=== PATIENT | female | born 1960 | race Caucasian/White ===

== ENCOUNTER 2021-02-27 11:42 | Outpatient (REF) | payer OTHER, SELFPAY ==
--- NOTE | ~2021-02-27 | MM_ITS ---
EXAMINATION: MM SCREENING DIGITAL BREAST TOMOSYNTHESIS, BILATERAL CLINICAL INFORMATION: Screening. Asymptomatic. The lifetime risk of breast cancer based on the Tyrer-Cuzick Model is 5%. COMPARISON: Mammography: 11/11/2018, 04/05/2015 TECHNIQUE: Digital breast tomosynthesis is performed in both the craniocaudal and mediolateral oblique views along with computer-aided detection (CAD). Synthesized 2D images are generated from the tomosynthesis. FINDINGS: There are scattered areas of fibroglandular density (ACR BI-RADS breast composition Category b). There are no significant masses, abnormal calcifications, or other abnormalities. Parenchymal pattern is similar to prior studies. No developing density. There are scattered benign round calcifications. The axilla and skin contours are unremarkable. MM/MM tomosynthesis screening BI IMPRESSION: No mammographic evidence of malignancy. ASSESSMENT: BI-RADS 1: Negative RECOMMENDATION: Routine annual mammography screening. This patient's information was entered into a reminder system with a target due date for their next mammogram.
== END 2021-02-27 11:43 | disposition home or self-care (01) ==
LOC: HO.MAMMO 11:42
PROVIDERS: Visit Provider Internal Medicine
DX: Z12.31 Encounter for screening mammogram for malignant neoplasm of breast (principal)
CPT/HCPCS: 77063; 77067

== ENCOUNTER 2021-07-08 11:13 | Outpatient (REF) | payer OTHER, SELFPAY ==
--- NOTE | ~2021-07-08 | XR_ITS ---
EXAMINATION: X-RAY RIGHT HAND X-RAY RIGHT THUMB CLINICAL INFORMATION: Pain between first and second metacarpals. Thumb pain. COMPARISON: None TECHNIQUE: Right hand 3 views. Right thumb 2 views. FINDINGS: Right thumb: Normal alignment. No fracture or dislocation. Joint spaces are maintained. Right hand: Normal alignment. No evidence of acute fracture or dislocation. Joint spaces are maintained. No abnormal soft tissue calcification. XR/XR hand RT min 3V IMPRESSION: No evidence of acute osseous abnormality.
--- NOTE | ~2021-07-08 | XR_ITS ---
EXAMINATION: X-RAY RIGHT HAND X-RAY RIGHT THUMB CLINICAL INFORMATION: Pain between first and second metacarpals. Thumb pain. COMPARISON: None TECHNIQUE: Right hand 3 views. Right thumb 2 views. FINDINGS: Right thumb: Normal alignment. No fracture or dislocation. Joint spaces are maintained. Right hand: Normal alignment. No evidence of acute fracture or dislocation. Joint spaces are maintained. No abnormal soft tissue calcification. XR/XR finger RT min 2V IMPRESSION: No evidence of acute osseous abnormality.
== END 2021-07-08 11:14 | disposition home or self-care (01) ==
LOC: HO.XRAY 11:13
PROVIDERS: Absent Provider Internal Medicine; PCP Internal Medicine; Visit Provider Family Medicine
DX: M79.644 Pain in right finger(s) (principal)
CPT/HCPCS: 73130; 73140

== ENCOUNTER → 2021-07-24 10:14 | Outpatient (BNVA) | payer OTHER, SELFPAY | PROVIDERS: PCP Internal Medicine; Visit Provider Physician Assistant | DX: M65.311 Trigger thumb, right thumb (principal) | CPT/HCPCS: 99202 ==

== ENCOUNTER 2021-08-29 10:21 | Day surgery (SDC) | payer OTHER, SELFPAY ==
--- NOTE | 2021-08-29 09:36 | W.PM.OPN ---
Operative Note Operative Note Date of Service: 08/29/21 Narrative: Operative Note Preop diagnosis: 1. Right trigger thumb Postop diagnosis: 1. Right trigger thumb Procedure: 1. Right thumb A1 eric release Surgeon: Arcelia Bailey MD Anesthesia: local block using 1% lidocaine with epinephrine Findings: No locking or catching after A1 eric release EBL: Less than 5 mL Tourniquet time: None Specimens: None Complications: None Disposition: Brought to recovery room in stable condition Plan: Follow-up for 10-14 days for wound check and suture removal Indications: The patient is 60 years old, with a right trigger thumb that has been unresponsive to nonoperative management. The risks and benefits of operative treatment including but not limited to risk of damage to blood vessels, nerves, tendons, infection, persistent pain, persistent symptoms, recurrence or possible need for additional surgery were discussed with the patient and the patient wishes to proceed with surgery. Procedure: Once consent was obtained a local block was performed in the preop area using a combination of 1% lidocaine with epinephrine. The patient was then brought back to the operating suite and placed on the operative table in supine position. A tourniquet was applied to the proximal aspect of the right upper extremity and the limb was prepped and draped in a standard surgical fashion. Once assured that we had a good block, a 1.5 cm oblique incision was made centered over the A1 eric of the right thumb . The incision was made through the skin to the subcutaneous tissues using a #15 blade. Careful dissection was made down to the level of the A1 eric using tenotomy scissors, with care being taken to protect the nearby neurovascular structures. A longitudinal incision was made in the A1 eric 1st using a #15 blade, then using tenotomy scissors under direct visualization. The A1 eric was noted to be thickened. Following our A1 eric release, we no longer saw any locking or catching of the digit with flexion and extension. Once satisfied with our A1 eric release the wound was copiously irrigated with normal saline and hemostasis was obtained with a brief period of local pressure. The skin edges were reapproximated with some 5.0 nylon suture material and a sterile dressing was applied. The patient appears to have tolerated the procedure well and with no complications. All digits were well vascularized at the conclusion of the case.
[2021-08-29 10:49] VITALS: BP 138/66; PULSE 85; RESP 16; TEMP 36.2; O2SAT 99; BMI 20.8
--- NOTE | 2021-08-29 11:55 | MHC.SHP ---
Pre-Procedural Eval Section A Date of Service: 08/29/21 The patient is an INPATIENT: No Changes since office visit: No Cold of Flu in the past 2 weeks, No New Medical Problems, No Changes in Medication and No Patient answered all questions The History & Physical has been completed within 30 days and I have reviewed it.: Yes Section B Chief Complaint: Trigger thumb, right thumb Allergies: Allergies Allergy/AdvReac Type Severity Reaction Status Date / Time No Known Allergies Allergy Unverified 07/24/21 10:18 Plan I have reviewed the history and physical and performed a pertinent physical examination on my patient. No changes have occurred unless specified.
[2021-08-29 11:58] VITALS: BP 126/61; PULSE 83; RESP 16; TEMP 36.1; O2SAT 100
== END 2021-08-29 11:58 | disposition home or self-care (01) ==
PROVIDERS: PCP Internal Medicine; Visit Provider Orthopaedic Surgery
PROC: (CPT 26055; principal; 2021-08-29 12:00)
DX: M65.311 Trigger thumb, right thumb (principal); M25.641 Stiffness of right hand, not elsewhere classified; R26.89 Other abnormalities of gait and mobility; E11.9 Type 2 diabetes mellitus without complications; Z79.84 Long term (current) use of oral hypoglycemic drugs
CPT/HCPCS: 26055; J0171

== ENCOUNTER → 2021-09-10 12:37 | Outpatient (BNVA) | payer OTHER, SELFPAY | PROVIDERS: PCP Internal Medicine; Visit Provider Orthopaedic Surgery | DX: M65.311 Trigger thumb, right thumb (principal) | CPT/HCPCS: 99212 ==

== ENCOUNTER 2021-09-26 09:54 | Outpatient (REF) | payer OTHER, SELFPAY ==
[2021-09-26 11:12] LABS: MANUAL DIFF FLAG NO
[2021-09-26 11:38] LABS: Basophils Absolute Auto 0.1 X10*3/uL (0.0-0.2); Basophils Percent Auto 1.4 % (0-2); Eosinophils Absolute Auto 0.2 X10*3/uL (0.0-0.4); Eosinophils Percent Auto 4.1 % (0-4); Hematocrit 39.3 % (37.0-47.0); Hemoglobin 13.4 g/dl (12.0-16.0); Imm Gran Abs Auto 0.01 X10*3/uL (0.00-0.03); Imm Gran Pct Auto 0.2 % (0.0-0.4); Lymphocytes Absolute Auto 1.5 X10*3/uL (1.2-4.9); Lymphocytes Percent Auto 31.1 % (20-40); Mean Corpuscular HGB Conc 34.1 g/dl (31.0-35.0); Mean Corpuscular Hemoglobin 29.6 pg (27.0-33.0); Mean Corpuscular Volume 86.8 fL (80.0-98.0); Mean Platelet Volume 10.7 fL (9.4-12.3); Monocytes Absolute Auto 0.6 X10*3/uL (0.1-1.2); Monocytes Percent Auto 11.5 % (2-11); Neutrophils Absolute Auto 2.5 x10*3/uL (2.0-8.3); Neutrophils Percent Auto 51.7 % (45-73); Platelet Count 184 X10*3/uL (160-400); Red Blood Count 4.53 X10*6/uL (4.20-5.50); Red Cell Distribution Width 13.3 % (11.0-16.0); White Blood Count 4.9 X10*3/uL (4.8-10.8)
[2021-09-26 12:32] LABS: Alanine Aminotransferase 25 U/L (0-31); Albumin Level 4.2 g/dL (3.5-5.0); Alkaline Phosphatase 55 U/L (39-117); Anion Gap 12 (12-20); Aspartate Amino Transferase 21 U/L (5-31); Bilirubin Total 0.3 mg/dL (0.0-1.0); Blood Urea Nitrogen 16 mg/dL (9-16); Calcium 9.7 mg/dL (8.4-10.2); Carbon Dioxide 28 mmol/L (22-29); Chloride 102 mmol/L (96-108); Estimated Glomerular Filt Rate > 60; Glucose Random 102 mg/dL (60-115); Potassium 4.8 mmol/L (3.3-5.1); Sodium 137 mmol/L (135-145)
[2021-09-26 12:38] LABS: Thyroid Stimulating Hormone 0.25 uIU/mL (0.32-4.0)
== END 2021-09-26 09:55 | disposition home or self-care (01) ==
LOC: HO.LAB 09:54
PROVIDERS: PCP Internal Medicine; Referring Provider Internal Medicine; Visit Provider Physician Assistant
DX: K52.9 Noninfective gastroenteritis and colitis, unspecified (principal)
CPT/HCPCS: 36415; 80053; 84443; 85025; 99202

== ENCOUNTER 2022-08-19 10:31 | Outpatient (REF) | payer OTHER, SELFPAY ==
--- NOTE | ~2022-08-19 | MM_ITS ---
EXAMINATION: MM SCREENING DIGITAL BREAST TOMOSYNTHESIS, BILATERAL CLINICAL INFORMATION: Screening. Asymptomatic. The lifetime risk of breast cancer based on the Tyrer-Cuzick Model is 6%. COMPARISON: Mammography: 02/27/2021, 11/11/2018, 04/05/2015, 03/14/2014. TECHNIQUE: Digital breast tomosynthesis is performed in both the craniocaudal and mediolateral oblique views along with computer-aided detection (CAD). Synthesized 2D images are generated from the tomosynthesis. FINDINGS: There are scattered areas of fibroglandular density (ACR BI-RADS breast composition Category b). Fibronodular parenchymal pattern is similar to prior exams. There is no significant mass or architectural abnormality or developing density. No abnormal calcifications. The axilla and skin contours are unremarkable. MM/MM tomosynthesis screening BI IMPRESSION: No mammographic evidence of malignancy. ASSESSMENT: BI-RADS 1: Negative RECOMMENDATION: Routine annual mammography screening. This patient's information was entered into a reminder system with a target due date for their next mammogram.
== END 2022-08-19 10:32 | disposition home or self-care (01) ==
LOC: HO.MAMMO 10:31
PROVIDERS: PCP Internal Medicine; Visit Provider Internal Medicine
DX: Z12.31 Encounter for screening mammogram for malignant neoplasm of breast (principal)
CPT/HCPCS: 77063; 77067

== ENCOUNTER 2023-08-25 10:37 | Outpatient (REF) | payer OTHER, SELFPAY | END 2023-08-25 10:38 | disposition home or self-care (01) | LOC: HO.MAMMO 10:37 | PROVIDERS: PCP Internal Medicine; Visit Provider Internal Medicine | DX: Z12.31 Encounter for screening mammogram for malignant neoplasm of breast (principal) | CPT/HCPCS: 77063; 77067 ==

== ENCOUNTER → 2023-08-25 11:00 | Outpatient (BNV) | payer OTHER, SELFPAY | PROVIDERS: PCP Internal Medicine; Visit Provider Radiology Diagnostic Radiology | DX: Z12.31 Encounter for screening mammogram for malignant neoplasm of breast (principal) | CPT/HCPCS: 77063; 77067 ==

== ENCOUNTER 2023-09-09 11:31 | Outpatient (REF) | payer OTHER, SELFPAY ==
[2023-09-09 14:38] LABS: Anion Gap 12 (12-20); Blood Urea Nitrogen 13 mg/dL (9-16); Calcium 9.4 mg/dL (8.4-10.2); Carbon Dioxide 30 mmol/L (22-29); Chloride 100 mmol/L (96-108); Cholesterol 125 mg/dL (<200); Estimated Glomerular Filt Rate > 60; Glucose Random 99 mg/dL (60-115); HDL Cholesterol 44 mg/dL (>40); LDL Cholesterol Calculated 69 mg/dL (<100); Potassium 4.4 mmol/L (3.3-5.1); Sodium 138 mmol/L (135-145); Triglycerides 62 mg/dL (<150)
[2023-09-09 14:39] LABS: TSH reflex Free T4 1.71 uIU/mL (0.32-4.0)
[2023-09-10 05:04] LABS: HIV AB/AG Nonreactive (Nonreactive); HIV Num 1 0.05 S/CO (0.00-0.99); ~HepC Num1 0.07 S/CO (0.00-0.79); ~Hepatitis C Antibody Nonreactive (Nonreactive)
[2023-09-11 22:28] LABS: TS Negative Control Passed; TS Panel A 0; TS Panel B 0; TS Positive Control Passed; TSpotTB Negative (Negative)
== END 2023-09-09 11:32 | disposition home or self-care (01) ==
LOC: HO.HHCL 11:31
PROVIDERS: Visit Provider Internal Medicine
DX: Z00.00 Encounter for general adult medical examination without abnormal findings (principal); Z11.4 Encounter for screening for human immunodeficiency virus [HIV]; Z11.1 Encounter for screening for respiratory tuberculosis; E03.9 Hypothyroidism, unspecified
CPT/HCPCS: 36415; 80048; 80061; 84443; 86481; 86803; 87389

== ENCOUNTER 2024-08-30 10:58 | Outpatient (REF) | payer OTHER, SELFPAY ==
--- OUTSIDE RECORDS SUMMARY | 2024-08-30 13:12 | XMS_ITS | Encounter Summary ---
Author Organization [facility] Address [address] [place] [address] 7 [place] [address] Care Team Providers Care Mud Cleaner Operator Name Role Phone Gill Carl MD Primary Care Provide r Encounter Details Date Type Department Care Team (Late st Contact Info) Description 08/22/2022 Abstract [facility] [address] [place], [place] [phone] Jessica Kuhn RN [address] [place] [address] Social History Tobacco Use Types Packs/Day Years Used Date Smoking Tobacco: Never Assessed Comments Unknown Sex and Gender Information Value Date Recorded Sex Assigned at Female 03/31/2022 10:15 AM EDT Legal Sex Female 10:15 AM EDT Gender Identity Female 03/31/2022 10:15 AM EDT Sexual Orientation Straight 03/31/2022 10 :15 AM EDT documented as of this encounter Plan of Treatment Not on file documented as of this encounter Procedures Procedure Name Priority Date/Time Associated Diagnosis Comments MAMMOGRAPHY Routine 08/19/2022 documented in this encounter Results * Mammography (08/19/2022) Mammogram BIRADS 2: Negative Anatomical Region Laterality Modality Other us Historical Provider HEALTH MAINTENANCE Final Result documented in this encounter Visit Diagnoses Not on filedocumented in this encounter Care Teams Mud Cleaner Operator Relationship Specialty Start Date End Date Gill Carl MD [address] [place] [address] PCP - General Family Medicine 02/10/18 documented as of this encounter
--- OUTSIDE RECORDS SUMMARY | 2024-08-30 13:12 | XMS_ITS | Encounter Summary ---
Author Organization [employer] Address [address] [place] [address] Care Team Providers Care Out And Out Cigar Maker Hand Name Role Phone Gill Carl MD Primary Care Provide r Encounter Details Date Type Department Care Team ([facility] st Contact Info) Description 07/28/2022 Orders Only [facility] [address] [place] [address] Mary Manning LPN Social History Tobacco Use Types Packs/Day Years [...] Procedure Name Priority Date/Time Associated Diagnosis Comments BI MAMMOGRAM SCREENING TOMOSYNTHESIS BILATERAL Routine 08/19/2022 11:00 AM EDT documented in this encounter Results * BI Mammogram Screening Tomosynthesis Bilateral (08/19/2022 11:00 AM EDT) Anatomical Region Laterality Modality Breast Bilateral Mammography 08/19/2022 11:0 0 AM EDT Narrative 08/21/2022 9:10 AM EDT ? [facility] ? [address] ?[place] [address] ? Mammography Report ? Signed ? Patient: Hicks,Lanny ?MR#: [id number] ?? 88 ? : 1960 ?Acct:[id number] ? Age/Sex: 61 / F ?ADM Date: 08/19/22 ? Loc: HO.MAMMO ? Attending Dr: Gill Molina MD ? Ordering Physician: Gill Carl MD ?Results: ?? 1Negative ? Date of Service: 08/19/22 ?Follow Up: 1 Year From Orig ?? inal Mammogram ? Procedure(s): MM tomosynthesis screening BI ?? Accession Number(s): [id number] ? cc: Gill Carl MD ? EXAMINATION: ?? MM SCREENING DIGITAL BREAST TOMOSYNTHESIS, BILATERAL ? CLINICAL INFORMATION: ? Screening. Asymptomatic. ? The lifetime risk of breast cancer based on the Tyrer-Cuzick Model is ?? 6%. ? COMPARISON: ?? Mammography: 02/27/2021, 11/11/2018, 04/05/2015, 03/14/2014. ? TECHNIQUE: ?? Digital breast tomosynthesis is performed in both the craniocaudal and ?? mediolateral oblique views along with computer-aided detection (CAD). ?? Synthesized 2D images are generated from the tomosynthesis. ? FINDINGS: ?? There are scattered areas of fibroglandular density (ACR BI-RADS breast ?? composition Category b). ? Fibronodular parenchymal pattern is similar to prior exams. There is no ?? significant mass or architectural abnormality or developing density. No ?? abnormal calcifications. The axilla and skin contours are unremarkable. ? MM/MM tomosynthesis screening BI ?? IMPRESSION: ?? No mammographic evidence of malignancy. ? ASSESSMENT: ? BI-RADS 1: Negative ? RECOMMENDATION: ?? Routine annual mammography screening. ? This patient's information was entered into a reminder system with a ?? target due date for their next mammogram. ? Dictated By: ?Gato Cooney MD ? Signed By: ?<Electronically signed by Gato Cooney MD in OV> ?08/21/22906 ? DD/ 1100 ? TD/TT: ? Active Directory Specialist: SAMPSON ? Procedure Note Donhoneyraifamarquester, Image - 08/21/2022 [facility] [address] [place] [address] Mammography Report Signed Patient: Sandy Hicks#: [id number] [birth year] : 1960Acct:[id number] Age/Sex: 61 / FADM Date: 08/19/22 Loc: HO.MAMMO Attending Dr: Gill Molina MD Ordering Physician: Gill Carl MDResults: 1Negative Date of Service: 08/19/22Follow Up: 1 Year From Orig inal Mammogram Procedure(s): MM tomosynthesis screening BI Accession Number(s): [id number] cc: Gill Carl MD EXAMINATION: MM SCREENING DIGITAL BREAST TOMOSYNTHESIS, BILATERAL CLINICAL INFORMATION: Screening. Asymptomatic. The lifetime risk of breast cancer based on the Tyrer-Cuzick Model is 6%. COMPARISON: Mammography: 02/27/2021, 11/11/2018, 04/05/2015, 03/14/2014. TECHNIQUE: Digital breast tomosynthesis is performed in both the craniocaudal and mediolateral oblique views along with computer-aided detection (CAD). Synthesized 2D images are generated from the tomosynthesis. FINDINGS: There are scattered areas of fibroglandular density (ACR BI-RADS breast composition Category b). Fibronodular parenchymal pattern is similar to prior exams. There is no significant mass or architectural abnormality or developing density. No abnormal calcifications. The axilla and skin contours are unremarkable. MM/MM tomosynthesis screening BI IMPRESSION: No mammographic evidence of malignancy. ASSESSMENT: BI-RADS 1: Negative RECOMMENDATION: Routine annual mammography screening. This patient's information was entered into a reminder system with a target due date for their next mammogram. Dictated By: Gato Cooney MD Signed By: <Electronically signed by Gato Cooney MD in OV> 08/21/22 0907 DD/ 1100 TD/TT: Active Directory Specialist: ADRIÁN [facility] External Provider IMG BI PROCEDURES Final Result documented in this encounter Visit Diagnoses Not on filedocumented in this encounter Care Teams Out And Out Cigar Maker Hand Relationship Specialty Start Date End Date Gill Carl MD [address] [place] [id number] PCP - General Family Medicine 02/10/18 documented as of this encounter
--- OUTSIDE RECORDS SUMMARY | 2024-08-30 13:12 | XMS_ITS | Clinical Summary ---
Author Organization [employer] Address [address] [place] [address] 7 [place] [address] Care Team Providers Care [employer] Hand Name Role Phone Gill Carl MD Primary Care Provide r Allergies No known active allergies Medications FreeStyle lancets INJECT 1 BY SUBCUTANEOUS ROUTE EVERY DAY 05/10/20 22 Active FreeStyle lancets INJECT 1 BY SUBCUTANEOUS ROUTE EVERY DAY 100 each 11 04/06/20 24 Active metFORMIN (Glucophage) 1000 MG tabletIndicatio ns:Type 2 diabetes mellitus with other specified complication, without long-term current use of insulin (CMS/HCC) TAKE 1 TABLET BY MOUTH TWICE A DAY WITH BREAKFAST AND DINNER 180 tablet 3 05/13/20 24 Active atorvastatin (Lipitor) 20 MG tablet TAKE 1 TABLET BY MOUTH EVERY DAY IN THE MORNING 90 tablet 3 05/13/20 24 Active FREESTYLE LITE test stripIndication s:Type 2 diabetes mellitus without complication, with long-term current use of insulin (CMS/HCC) CHECK BY FINGERSTICK ROUTE EVERY DAY 50 strip 5 05/26/20 24 Active lisinopril-hydr oCHLOROthiazide 20-12.5 MG tabletIndicatio ns:Primary hypertension TAKE 1 TABLET BY MOUTH EVERY DAY IN THE MORNING 90 tablet 08/23/19 25 Active levothyroxine (Synthroid, Levoxyl) 50 MCG tabletIndicatio ns:Hypothyroidi sm, unspecified type TAKE 1 TABLET BY MOUTH EVERY DAY 90 tablet 08/23/19 25 Active levothyroxine (Synthroid, Levoxyl) 50 MCG tabletIndicatio ns:Hypothyroidi sm, unspecified type TAKE 1 TABLET BY MOUTH EVERY DAY 90 tablet 1 02/18/20 24 2024 Discontinued lisinopril-hydr oCHLOROthiazide 20-12.5 MG tabletIndicatio ns:Primary hypertension TAKE 1 TABLET BY MOUTH EVERY DAY IN THE MORNING 90 tablet 1 02/23/20 24 2024 Discontinued Active Problems Problem Noted Date Diagnosed Date Encounter for preventive care 09/09/2023 Assessment & Plan (09/09/2023 10:51 AM EDT): See HPI Colon cancer screening 06/04/2023 Cervical cancer screening 10/30/2022 Assessment & Plan (10/30/2022 10:40 AM EDT): PAP smear and pelvic exam done Patient will be contacted with results Acute upper respiratory infection 08/28/2022 Chronic diarrhea 08/28/2022 Trigger thumb of right hand 08/28/2022 Acquired trigger finger 10/09/2017 Hand pain 10/09/2017 Acquired hypothyroidism 11/02/2015 Assessment & Plan (09/05/2022 10:45 AM EDT): tsh will be check with labs Type 2 diabetes mellitus without complication Assessment & Plan (09/09/2023 10:50 AM EDT): Diabetes is: controlled - Lab Results Component Value Date HGBA1C 6.5 (A) 06/04/2023 HGBA1C 6.9 (A) 09/05/2022 HGBA1C 6.3 (H) 10/18/2021 - Lab Results Component Value Date MICROALBUR 0.9 10/15/2020 CREATININE 0.67 09/05/2022 -Changes: none - Diabetic eye exam:up to date - Diabetic foot exam:done today - Continue lifestyle modifications - Continue current medications - Follow up: 3 months Assessment & Plan (06/04/2023 10:36 AM EST): - Lab Results Component Value Date HGBA1C 6.5 (A) 06/04/2023 HGBA1C 6.9 (A) 09/05/2022 HGBA1C 6.3 (H) 10/18/2021 - Lab Results Component Value Date MICROALBUR 0.9 10/15/2020 CREATININE 0.67 09/05/2022 - Diabetic eye exam:patient has upcoming appointment - Diabetic foot exam: pending - Continue lifestyle modifications - Continue current medications - Assessment & Plan (10/30/2022 10:39 AM EDT): Continue with current interventions Assessment & Plan (09/05/2022 10:45 AM EDT): - Lab Results Component Value Date HGBA1C 6.3 (H) 10/18/2021 HGBA1C 6.4 (H) 10/15/2020 - Lab Results Component Value Date MICROALBUR 0.9 10/15/2020 CREATININE 0.75 09/26/2021 CREATININE 0.75 09/26/2021 - Diabetic eye exam: referral today - Diabetic foot exam: pending for next appointment - Continue lifestyle modifications - Continue current medications Benign hypertension 11/03/2001 Assessment & Plan (09/09/2023 10:49 AM EDT): - Aerobic exercise to reduce BP. Initial goal of 30 min walk 3-5x/week. Increase as tolerated. - low-sodium diet (goal: <2g/day) and heart healthy diet such as DASH to reduce BP and prevent ASCVD. - Home BP monitoring 1-2 x day with goal of <140/90. - Seek immediate medical attention for chest pain, palpitations, SOB, syncope, or sudden changes in mental status. - Do not change or discontinue current prescriptions without first consulting health care provider Assessment & Plan (06/04/2023 10:35 AM EST): Maintenance: BMP: up to date Lipid Panel: up to date ASCVD Risk: on atorvastatin 20mg - Aerobic exercise to reduce BP. Initial goal of 30 min walk 3-5x/week. Increase as tolerated. - low-sodium diet (goal: <2g/day) and heart healthy diet such as DASH to reduce BP and prevent ASCVD. - Home BP monitoring 1-2 x day with goal of <140/90. - Seek immediate medical attention for chest pain, palpitations, SOB, syncope, or sudden changes in mental status. - Do not change or discontinue current prescriptions without first consulting health care provider Assessment & Plan (09/05/2022 10:19 AM EDT): Maintenance: BMP: ordered today Lipid Panel: ordered today ASCVD Risk: Calculate pending updated labs - Aerobic exercise to reduce BP. Initial goal of 30 min walk 3-5x/week. Increase as tolerated. - low-sodium diet (goal: <2g/day) and heart healthy diet such as DASH to reduce BP and prevent ASCVD. - Home BP monitoring 1-2 x day with goal of <140/90. - Seek immediate medical attention for chest pain, palpitations, SOB, syncope, or sudden changes in mental status. - Do not change or discontinue current prescriptions without first consulting health care provider Encounters Date Type Department Care Team Description 08/20/2024 Refill [facility] [address] [place] [address] Gill Carl MD Primary hypertension; Hypothyroidism, unspecified type from Last 3 Months Immunizations Name Administration Dates Next Due Hep A, Adult 05/23/2009,05/22/2009 Hep B, adult 10/05/2012,04/05/2012,11/27/2011 Influenza injectable quadriv alent IIV4 with preservative 02/19/2015 Influenza injectable quadriv alent preservative free 06/04/2023,02/28/2020 Influenza, IIV3, injectable 02/06/2014 Influenza, Split (incl. pam fied surface antigen) 02/03/2012 MMR 12/31/2010 Pneumococcal Polysaccharide PPSV23 12/26/1999 TD (adult), 2 Lf tetanus tox oid, preservative free, adsorbed 09/22/1997 Tdap 12/31/2010 Social History Tobacco Use Types Packs/Day Years Used Date Smoking Tobacco: Former Cigarettes Q uit: 2008 Passive Smoke Exposure: Past Smokeless Tobacco: Never Tobacco Cessation:Counseling Given: Not Answered Alcohol Use Standard Drinks/Week Comments Not Currently 0 (1 standard drink = 0.6 oz pur e alcohol) Depression Answer Date Recorded Patient Health Questionnaire-9 Score 0 09/05/2022 Housing Stability Answer Date Recorded What is your housing situation today? I have archana kelly 03/30/[address] you li ve. Do you have problems with any of the following? None of the above 03/30/2023 Food Insecurity Answer Date Recorded Within the past 12 months, y ou worried that your food would run out before you got money to buy more: Never True 03/30/2023 Within the past 12 months,th e food you bought just didn't last and you didn't have enough money to get more: Never True Transportation Answer Date Recorded In the past 12 months, has l ack of transportation kept you from medical appts, meetings, work or from getting things needed for daily living? No 03/30/2023 Utilities Answer Date Recorded In the past 12 months, has t he electric, gas, oil or water company threatened to shut off services in your home? No 03/30/2023 Depression Answer Date Recorded Patient Health Questionnaire-2 Score 0 09/05/2022 Comments Unknown Sex and Gender Information Value Date Recorded Sex Assigned at Female 03/31/2022 10:15 AM EDT Legal Sex Female 10:15 AM EDT Gender Identity Female 03/31/2022 10:15 AM EDT Sexual Orientation Straight 03/31/2022 10 :15 AM EDT Last Filed Vital Signs Vital Sign Reading Time Taken Comments Blood Pressure 127/70 09/09/2023 9:51 AM EDT Pulse 76 09/09/2023 9:51 AM EDT Temperature 36.1 ??C (96.9 ??F) 09/09/2023 9:51 AM ED T Respiratory Rate 18 09/09/2023 9:51 AM EDT Oxygen Saturation 98% 09/09/2023 9:51 AM EDT Inhaled Oxygen Concentration - - Weight 51.7 kg (114 lb) 09/09/2023 9:51 AM EDT Height 157.5 cm (5' 2 ) 09/09/2023 9:51 AM EDT Body Mass Index 20.85 09/09/2023 9:51 AM EDT Plan of Treatment Health Maintenance Due Date Last Done Comments CT Colonography 1959 Colonoscopy 1959 FIT 1959 FOBT 1960 Sigmoidoscopy 1960 Eye Exam 11/27/1969 Alcohol/Substance Use Screening 1971 Pneumococcal Vaccine: 50+ Years (2 of 2 - PCV) 12/25/2000 12/26/1999 Zoster Vaccines (1 of 2) 11/27/2009 DTaP/Tdap/Td Vaccines (2 - Td or Tdap) 12/31/2020 12/31/2010, 09/22/1997 Depression Screening 09/06/2023 09/05/2022, 09/06/19 Diabetes: Urine Protein Screening 09/06/2023 09/05/2022, 10/15/2020 SDOH Screening 10/31/2023 10/30/2022 Diabetes: Hemoglobin A1C 12/03/2023 024, 09/05/2022, 10/18/2021, Additional history exists COVID-19 Vaccine ( season) 2024 10/19/2020, 09/28/2020 Influenza Vaccine (#1) 2024 , 02/28/2020, 02/19/2015, Additional history exists Mammogram 08/24/2024 08/25/2023, 07/31, 08/19/2022, Additional history exists Diabetes: Foot Exam 09/08/2024 09/09/2023, 09/09/2023, 09/09/2023, Additional history exists Lipid Panel 09/08/2024 09/09/2023, 04/0 11/2022, 10/15/2020 Tobacco Screening 09/08/2024 09/09/2023 Pap Smear 10/30/2025 10/30/2022, 06/0 06/2022, 10/30/2022 Colorectal Cancer Screening 06/21/2026 FIT DNA/Cologuard 06/21/2026 06/21/2023 Cervical Cancer Screening 10/31/2027 HPV/Cotest 10/31/2027 10/30/2022, 06/0 06/2022, 08/17/2017 RSV Patients and Patients Aged 60 years or older (1 - 1-dose 75+ series) 11/27/2034 Hepatitis A Vaccines Aged Out 05/23/2009, 05/22/20 09 No longer eligible based on patient's age to complete this topic Hepatitis B Vaccines Completed 10/05/2012, 04/05/2012, 11/27/2011 HIV Screening Completed 09/09/2023 Hepatitis C Screening Completed 09/09/2023 HIB Vaccines Aged Out No longer eligi ble based on patient's age to complete this topic HPV Vaccines Aged Out No longer eligi ble based on patient's age to complete this topic IPV Vaccines Aged Out No longer eligi ble based on patient's age to complete this topic Meningococcal Vaccine Aged Out No daiana elbert eligible based on patient's age to complete this topic RSV under 20 months Aged Out No longe r eligible based on patient's age to complete this topic Rotavirus Vaccines Aged Out No longer eligible based on patient's age to complete this topic Procedures Procedure Name Priority Date/Time Associated Diagnosis Comments HEPATITIS C AB W/REFL TO HCV RNA, QN, PCR Routine 09/09/2023 11:32 AM EDT Encounter for preventive care HIV 1/2 ANTIGEN/ANTIBODY, FOURTH GENERATION W/RFL Routine 09/09/2023 11:32 AM EDT Encounter for preventive care LIPID PANEL, STANDARD Routine 09/09/2023 11:32 AM EDT Encounter for preventive care BI MAMMOGRAM SCREENING TOMOSYNTHESIS BILATERAL Routine 08/25/2023 10:54 AM EDT LAB COLOGUARD?? COLON CANCER SCREEN Routine 06/21/2023 11:40 AM EST Colon cancer screening POCT GLYCATED HEMOGLOBIN, TOTAL Routine 06/04/2023 10:16 AM EST Type 2 diabetes mellitus without complication, with long-term current use of insulin (CMS/HCC) IMAGE-GUIDED PAP W/AGE BASED SCR,W/CT/NG/TRICH Routine 10/30/2022 10:47 AM EDT Cervical cancer screening ALBUMIN, RANDOM URINE W/O CREATININE Routine 09/05/2022 10:32 AM EDT Type 2 diabetes mellitus without complication, with long-term current use of insulin (CMS/HCC) from Last 3 Months or Most Recently Relevant to Health Maintenance Results * Hepatitis C Antibody with Reflex to HCV, RNA, Quantitative, Real-Time PCR (09/09/2023 11:32 AM EDT) Hepatitis C Antibody Nonreactive Nonreactive [facility] Comment:Antibodies to HCV no t detected; does not exclude early acuteHCV infection. Blood Venous blood specimen / Unknown 09/09/2023 11:32 AM EDT 09/09/2023 1:38 PM EDT us Gill Molina MD LAB BLOOD ORDERABLES Final Result Performing Organization Address [facility] Co de Phone Number [facility] [address] [place] [phone] * HIV-1/2 Antigen and Antibodies, Fourth Generation, with Reflexes (09/09/2023 11:32 AM EDT) HIV AB/AG Nonreactive Nonreactive [facility] Comment:HIV-1 p24 Ag and/or HIV-1/HIV-2 Ab not detected.A test result that is nonreactive does not exclude thepossibility of exposure to or infection with HIV-1 and/orHIV-2. Nonreactive results in this assay for individualswith prior exposure to HIV-1 and/or HIV-2 may be due toantigen and antibody levels that are below the limit ofdetection of this assay.The [employer] HIV Ag/Ab Combo assay result andsupplemental assay results should be interpreted inconjunction with the patient's clinical presentation,history and other laboratory results. If the results areinconsistent with clinical evidence, additional testing issuggested to confirm the result. Blood Venous blood specimen / Unknown 09/09/2023 11:32 AM EDT 09/09/2023 1:38 PM EDT us Gill Molina MD LAB BLOOD ORDERABLES Final Result Performing Organization Address [facility]/ZIP Co de Phone Number [facility] [address] [place] [phone] * Lipid Panel, Standard (09/09/2023 11:32 AM EDT) Triglycerides 62 <150 mg/dL [facility] Comment:Desirable Triglyceri de: less than 150 mg/dLBorderline High Triglyceride 150-199 mg/dLHigh Triglyceride: 200-499 mg/dLVery High Triglyceride: greater than or equal to 5OO mg/dL Cholesterol 125 <200 mg/dL [facility] Comment:Desirable Cholestero l: less than 200 mg/dLBorderline High Cholesterol: 200-239 mg/dLHigh Cholesterol: greater than 239 mg/dL LDL Cholesterol Calculated 69 <100 mg/dL [facility] Comment:Desirable LDL: less than 100 mg/dLNear Optimal/Above Optimal LDL: 110- 129 mg/dLBorderline High LDL: 130-159 mg/dLHigh LDL: 160-189 mg/dLVery High LDL: greater than or equal to 190 mg/dL HDL Cholesterol 44 >40 mg/dL [facility] Comment:Desirable HDL: great er than 40 mg/dL Note: This HDL assay may give artificially low results in patients with liver disease. Blood Venous blood specimen / Unknown 09/09/2023 11:32 AM EDT 09/09/2023 1:38 PM EDT Gill Molina MD LAB BLOOD ORDERABLES Final Result [facility] [address] [place] [address] [phone] * BI Mammogram Screening Tomosynthesis Bilateral (08/25/2023 10:54 AM EDT) Anatomical Region Laterality Modality Breast Bilateral Mammography 08/25/2023 10:5 4 AM EDT Narrative 09/10/2023 6:13 AM EDT ? [facility] ? [address] ?[place] [address] ? Mammography Report ? Signed ? Patient: Hicks,Lanny ?MR#: [id number] ?? 88 ? : 1960 ?Acct:[id number] ? Age/Sex: 62 / F ?ADM Date: 03/26/24 ? Loc: HO.MAMMO ? Attending Dr: Gill Molina MD ? Ordering Physician: Gill Carl MD ?Results: ?? 1Negative ? Date of Service: 08/25/23 ?Follow Up: 1 Year From Orig ?? inal Mammogram ? Procedure(s): MM tomosynthesis screening BI ?? Accession Number(s): [id number] ? cc: Gill Carl MD ? EXAMINATION: ?? MM SCREENING DIGITAL BREAST TOMOSYNTHESIS, BILATERAL ? CLINICAL INFORMATION: ? Screening. Asymptomatic. ? COMPARISON: ?? Mammography: This study is compared with prior exams dating back to ?? 2019. ? TECHNIQUE: ?? Digital breast tomosynthesis is performed in both the craniocaudal and ?? mediolateral oblique views along with computer-aided detection (CAD). ?? Synthesized 2D images are generated from the tomosynthesis. ? FINDINGS: ?? There are scattered areas of fibroglandular density (ACR BI-RADS breast ?? composition Category b). ? There are no significant masses, abnormal calcifications, or other ?? abnormalities. ? MM/MM tomosynthesis screening BI ?? IMPRESSION: ?? No mammographic evidence of malignancy. ? ASSESSMENT: ? BI-RADS BI-RADS 1 - Negative ? RECOMMENDATION: ?? Routine annual mammography screening. ? 1 year F/U ? This examination should not preclude the clinical evaluation of a ?? suspicious palpable abnormality. ? This patient's information was entered into a reminder system with a ?? target due date for their next mammogram. ? Dictated By: ?Bia Reyna MD ? Signed By: ?<Electronically signed by Bia Reyna MD in OV> ? 09/10/23 0609 ? DD/ 1054 ? TD/TT: ? Band Instrument Repairer: ? Procedure Note Donotrafiainterpreter, Image - 09/10/2023 [place] [facility] [address] [place] [address] Mammography Report Signed Patient: Lanny HicksMR#: [id number] 88 : 1960Acct:[id number] Age/Sex: 62 / FADM Date: 08/25/23 Loc: HO.MAMMO Attending Dr: Gill Molina MD Ordering Physician: Gill Carl MDResults: 1Negative Date of Service: 08/25/23Follow Up: 1 Year From Orig inal Mammogram Procedure(s): MM tomosynthesis screening BI Accession Number(s): [id number] cc: Gill Carl MD EXAMINATION: MM SCREENING DIGITAL BREAST TOMOSYNTHESIS, BILATERAL CLINICAL INFORMATION: Screening. Asymptomatic. COMPARISON: Mammography: This study is compared with prior exams dating back to 2019. TECHNIQUE: Digital breast tomosynthesis is performed in both the craniocaudal and mediolateral oblique views along with computer-aided detection (CAD). Synthesized 2D images are generated from the tomosynthesis. FINDINGS: There are scattered areas of fibroglandular density (ACR BI-RADS breast composition Category b). There are no significant masses, abnormal calcifications, or other abnormalities. MM/MM tomosynthesis screening BI IMPRESSION: No mammographic evidence of malignancy. ASSESSMENT: BI-RADS BI-RADS 1 - Negative RECOMMENDATION: Routine annual mammography screening. 1 year F/U This examination should not preclude the clinical evaluation of a suspicious palpable abnormality. This patient's information was entered into a reminder system with a target due date for their next mammogram. Dictated By: Bia Reyna MD Signed By: <Electronically signed by Bia Reyna MD in OV> 09/10/23 0609 DD/ 1054 TD/TT: Band Instrument Repairer: Gill Molina MD IMG BI PROCEDURES Fin al Result * Cologuard?? colon cancer screening (06/21/2023 11:40 AM EST) Cologuard Result Negative Negative 06/30/19 12:20 AM EST [facility] (CLIA #:[id number]) Comment: NEGATIVE TEST RESULT. A negative Cologuard result indicates a low likelihood that a colorectal cancer (CRC) or advanced adenoma (adenomatous polyps with more advanced pre-malignant features) ??is present. The chance that a person with a negative Cologuard test has a colorectal cancer is less than 1 in 1500 (negative predictive value >99.9%) or has an ??advanced adenoma is less than ??5.3% (negative predictive value 94.7%). These data are based on a prospective cross-sectional study of 10,000 individuals at average risk for colorectal cancer who were screened with both Cologuard and colonoscopy. (Geoffrey Eldridge al, N Engl J Med 2014;370(14):1286- 1297) The normal value (reference range) for this assay is negative. COLOGUARD RE-SCREENING RECOMMENDATION: Periodic colorectal cancer screening is an important part of preventive healthcare for asymptomatic individuals at average risk for colorectal cancer. ??Following a negative Cologuard result, the [place] [employer] and U.S. Multi-Society Task Force screening guidelines recommend a Cologuard re-screening interval of 3 years. References: [place] [employer] Guideline for Colorectal Cancer Screening: https://www.cancer.org/cancer/momxy-kltnvh-ipchpj/rszxandwu-beamrhjxx-hphhkaz/ac s-rec ommendations.html.; Tacos DK, Key CR, Maritza MELISSA, Colorectal Cancer Screening: Recommendations for Physicians and Patients from the U.S. Multi-Society Task Force on Colorectal Cancer Screening , Am J Gastroenterology 2017; 112:5524-1242. TEST DESCRIPTION: Composite algorithmic analysis of stool DNA-biomarkers with hemoglobin immunoassay. ?? Quantitative values of individual biomarkers are not reportable and are not associated with individual biomarker result reference ranges. Cologuard is intended for colorectal cancer screening of adults of either sex, 45 years or older, who are at average-risk for colorectal cancer (CRC). Cologuard has been approved for use by the U.S. FDA. The performance of Cologuard was established in a cross sectional study of average-risk adults aged 50-84. Cologuard performance in patients ages 45 to 49 years was estimated by sub-group analysis of near-age groups. Colonoscopies performed for a positive result may find as the most clinically significant lesion: colorectal cancer [4.0%], advanced adenoma (including sessile serrated polyps greater than or equal to 1cm diameter) [20%] or non- advanced adenoma [31%]; or no colorectal neoplasia [45%]. These estimates are derived from a prospective cross-sectional screening study of 10,000 individuals at average risk for colorectal cancer who were screened with both Cologuard and colonoscopy. (Geoffrey Richard. et al, N Engl J Med 2014;370(14):4711-8766.) Cologuard may produce a false negative or false positive result (no colorectal cancer or precancerous polyp present at colonoscopy follow up). A negative Cologuard test result does not guarantee the absence of CRC or advanced adenoma (pre-cancer). The current Cologuard screening interval is every 3 years. ([place] [employer] and U.S. Multi-Society Task Force). Cologuard performance data in a 10,000 patient pivotal study using colonoscopy as the reference method can be accessed at the following location: www.[employer].com/results. Additional description of the Cologuard test process, warnings and precautions can be found at www.Connect Controlsoguard.com. Stool specimen (specimen) 06/21/2023 11:40 AM EST 06/23/2023 11:34 AM EST Gill Molina MD LAB MOLECULAR DIAGNOS TICS ORDERABLES Final Result [facility] (CLIA #:[id number]) [address] [place] [id number], * (ABNORMAL) POCT A1C (06/04/2023 10:16 AM EST) Hemoglobin A1C 6.5(A) 4.0 - 6.0 % QC Media Lot # [id number] Lot# Expiration Date ,297 Blood 06/04/2023 10:1 6 AM EST Gill Molina MD POINT OF CARE TEST EN TER/EDIT ORDERABLES Final Result * Image-Guided Pap with Age-Based Screening??with CT/NG,??Trichomonas (10/30/2022 10:47 AM EDT) Comment [facility] Comment: This order for age-based cervical cancer and STI screening follows ACOG guidelines(PB 168, 140, GUI937). See individual assays for performing site location. Clinical Information: 61 YR/F [facility] LMP: NONE GIVEN [facility] Prev. PAP: NONE GIVEN [facility] Prev. BX: NONE GIVEN [facility] SOURCE: None given [facility] Statement Of Adequacy: Ondoret Comment: Satisfactory for evaluation. Endocervical/transformation zone component present. Interpretation/Re sult: Negative for intraepithelial lesion or malignancy. [facility] COMMENT: This Pap test has been evaluated with computer assisted technology. [facility] [place] [employer]: [employer] Comment: ALYCE, CT(ASCP) CT screening location: [address] ??[phone] (Always Message) [employer] Comment: EXPLANATORY NOTE: The Pap is a screening test for cervical cancer. It is not a diagnostic test and is subject to false negative and false positive results. It is most reliable when a satisfactory sample, regularly obtained, is submitted with relevant clinical findings and history, and when the Pap result is evaluated along with historic and current clinical information. HPV nRNA E6/E7 Not Detected Not Detected [facility] Comment: Methodology: Nutritionist-Mediated Amplification This assay detects E6/E7 viral messenger RNA (mRNA) from 14 high-risk HPV types (16,18,31,33,35,39,45,51,52,56,58,59,66,68). Cervical sources are required for HPV testing. If a vaginal source from a patient who has had a total hysterectomy with removal of cervix was submitted, please contact the testing laboratory for alternative testing options. For additional information, please refer to http://[employer].Cantimer/faq/EPC281s8 (This link if provided for information/ educational purposes only.) Chlamydia trachomatis RNA, TMA, Urogenital NOT DETECTED NOT DETECTED [employer] Neisseria gonorrhoeae RNA, TMA, Urogenital NOT DETECTED NOT DETECTED [employer] (Always Message) Que [facility] [employer] Comment: The analytical performance characteristics of this assay, when used to test SurePath(TM) specimens have been determined by [facility]. The modifications have not been cleared or approved by the FDA. This assay has been validated pursuant to the CLIA regulations and is used for clinical purposes. For additional information, please refer to https://Neocoretech.Cantimer/faq/NHB860 (This link is being provided for information/ educational purposes only.) Trichomonas vaginalis, QL, TMA, PAP Vial NOT DETECTED NOT DETECTED [employer] Comment: The analytical performance characteristics of this assay have been determined by [facility]. The modifications have not been cleared or approved by the FDA. This assay has been validated pursuant to the CLIA regulations and is used for clinical purposes. For additional information, please refer to http://Neocoretech.Cantimer/ faq/Trichomonastma (This link is being provided for information/ educational purposes only.) Cervix 10/30/2022 10:4 7 AM EDT 10/31/2022 2:52 AM EDT us Gill Molina MD LAB CYTOLOGY ORDERABL ES Final Result Performing Organization Address [facility]/ZIP Co de Phone Number [facility] [address], [place] [address] [facility] [place] [facility] [address] [place] [address] * Albumin, Random Urine W/O Creatinine (09/05/2022 10:32 AM EDT) Albumin, Urine 0.6 See Note: mg/dL [facility] [place] [facility] Comment: Reference Range: Reference Range Not established ALY[facility] [place] [facility] Comment: The ADA defines abnormalities in albumin excretion as follows: Albuminuria Category ? Result (mcg/mg creatinine) Normal to Mildly increased ?<30 Moderately increased ?30-299 Severely increased ?> OR = 300 The ADA recommends that at least two of three specimens collected within a 3-6 month period be abnormal before considering a patient to be within a diagnostic category. Urine Urine specimen obtained by clean catch procedure / Unknown 09/05/2022 10:32 AM EDT 09/05/2022 10:32 AM EDT Narrative [facility] - 09/06/2022 12:24 AM EDT FASTING:YES FASTING: YES us Glil Molina MD LAB URINE ORDERABLES Final Result Performing Organization Address City/[facility] Co de Phone Number [facility] [address], [place] [address] [facility] [place] [facility] [address] [place] [address] from Last 3 Months or Most Recently Relevant to Health Maintenance [place] [address] [place] [address] Care Teams Food Crops Farm Hand Relationship Specialty Start Date End Date Gill Carl MD [address] [place] [phone] PCP - General Family Medicine 02/10/18
--- OUTSIDE RECORDS SUMMARY | 2024-08-30 13:12 | XMS_ITS | Encounter Summary ---
Author Organization [employer] Address [address] [facility] 7t [place] [address] Care Team Providers Care Water Quality Assistant Name Role Phone Gill Carl MD Primary Care Provide r Encounter Details Date Type Department Care Team ([facility] st Contact Info) Description 12/09/2022 Orders Only [facility] MED & PEDS [address] [place], [place] [phone] Mary Manning LPN Social History Tobacco Use Types Packs/Day Years Used Date Smoking Tobacco: Former Cigarettes Q uit: 2008 Passive Smoke Exposure: Never Smokeless Tobacco: Never Alcohol Use Standard Drinks/Week Comments Not Currently 0 (1 standard drink = 0.6 oz pur e alcohol) Depression Answer Date Recorded Patient Health Questionnaire-9 Score 0 09/05/2022 Depression Answer Date Recorded Patient Health Questionnaire-2 [...] on file documented as of this encounter Visit Diagnoses Not on filedocumented in this encounter Additional Health Concerns Assessment Noted Time PHQ-9 Depression Total Score: 0 09/06/19 23 10:13 AM EDT documented as of this encounter Care Teams Water Quality Assistant Relationship Specialty Start Date End Date Gill Carl MD [address] [place] [address] PCP - General Family Medicine 02/10/18 documented as of this encounter
--- OUTSIDE RECORDS SUMMARY | 2024-08-30 13:12 | XMS_ITS | Encounter Summary ---
Author Organization [employer] Address [address] [facility] 7t [place] [address] Care Team Providers Care Production Sanitizer Name Role Phone Gill Carl MD Primary Care Provide r Reason for Visit * Reason Comments Med Refill Encounter Details Date Type Department Care Team ([facility] st Contact Info) Description 04/16/2023 Refill [facility] MEDICINE [address] [place], [place] [phone] Mary Perez, [address] [place] [address] Social History Tobacco Use Types Packs/Day Years [...] documented as of this encounter Care Teams Production Sanitizer Relationship Specialty Start Date End Date Gill Carl MD [address] [place] [phone] PCP - General Family Medicine 02/10/18 documented as of this encounter
--- OUTSIDE RECORDS SUMMARY | 2024-08-30 13:12 | XMS_ITS | Encounter Summary ---
Author Organization [employer] Address [address] [facility] 7t [place] [address] Care Team Providers Care Butting Saw Operator Name Role Phone Gill Carl MD Primary Care Provide r Encounter Details Date Type Department Care Team ([facility] st Contact Info) Description 09/18/2023 Orders Only [facility] MEDICINE [address] [place], [place] [phone] Gill Carl MD [address] [place], [place] [phone] Social History Tobacco Use Types Packs/Day Years Used Date Smoking Tobacco: Former Cigarettes Q uit: 2008 Passive Smoke Exposure: Past Smokeless Tobacco: Never Alcohol Use Standard Drinks/Week [...] documented as of this encounter Care Teams Butting Saw Operator Relationship Specialty Start Date End Date Gill Carl MD [address] [place] [address] PCP - General Family Medicine 02/10/18 documented as of this encounter
--- OUTSIDE RECORDS SUMMARY | 2024-08-30 13:12 | XMS_ITS | Encounter Summary ---
Author Organization [employer] Address [address] [facility] 7t [place] [address] Care Team Providers Care Rail Assembler Name Role Phone Gill Carl MD Primary Care Provide r Reason for Visit * Reason Comments Med Refill Encounter Details Date Type Department Care Team ([facility] st Contact Info) Description 11/20/2023 Refill [facility] MEDICINE [address] [place], [place] [phone] Gill Carl MD [address] [place], [place] [phone] Hypothyroidism, unspecified type Social History Tobacco Use Types Packs/Day Years [...] documented as of this encounter Visit Diagnoses Diagnosis Hypothyroidism, unspecified type documented in this encounter Additional Health Concerns Assessment Noted Time PHQ-9 Depression Total Score: 0 09/06/19 23 10:13 AM EDT documented as of this encounter Care Teams Rail Assembler Relationship Specialty Start Date End Date Gill Carl MD [address] [place] [address] PCP - General Family Medicine 02/10/18 documented as of this encounter
== END 2024-08-30 10:59 | disposition home or self-care (01) ==
LOC: HO.MAMMO 10:58
PROVIDERS: PCP Internal Medicine; Visit Provider Internal Medicine
DX: Z12.31 Encounter for screening mammogram for malignant neoplasm of breast (principal)
CPT/HCPCS: 77063; 77067

== ENCOUNTER → 2024-08-30 11:00 | Outpatient (BNV) | payer OTHER, SELFPAY | PROVIDERS: PCP Internal Medicine; Visit Provider Internal Medicine | DX: Z12.31 Encounter for screening mammogram for malignant neoplasm of breast (principal) | CPT/HCPCS: 77063; 77067 ==

== ENCOUNTER 2025-03-07 08:48 | Outpatient (REF) | payer OTHER, SELFPAY ==
--- OUTSIDE RECORDS SUMMARY | 2025-03-07 09:33 | XMS_ITS | Encounter Summary ---
Author Organization [employer] Address [address] [facility] [address] 7[address] [place] [address] Care Team Providers Care Zipper Measurer Name Role Phone Gill Carl MD Primary Care Provide r Encounter Details Date Type Department Care Team ([facility] st Contact Info) Description 09/18/2023 Orders Only [facility] MEDICINE [address] [place], [place] [phone] Gill Carl MD [address] [place], [place] [phone] Social History Tobacco Use Types Packs/Day Years [...] documented as of this encounter Care Teams Zipper Measurer Relationship Specialty Start Date End Date Gill Carl MD [address] [place] [phone] PCP - General Family Medicine 02/10/18 documented as of this encounter
--- OUTSIDE RECORDS SUMMARY | 2025-03-07 09:33 | XMS_ITS | Encounter Summary ---
Author Organization [employer] Address [address] [facility] [address] 7t [place] [address] Care Team Providers Care Foot Caster Name Role Phone Gill Carl MD Primary Care Provide r Reason for Visit * Reason Comments Med Refill Encounter Details Date Type Department Care Team ([facility] st Contact Info) Description 04/16/2023 Refill [facility] MEDICINE [address] [place] [address] Mary Perez DO [address] [place] [address] Social History Tobacco Use Types Packs/Day Years [...] documented as of this encounter Care Teams Foot Caster Relationship Specialty Start Date End Date Gill Carl MD [address] [place] [address] PCP - General Family Medicine 02/10/18 documented as of this encounter
--- OUTSIDE RECORDS SUMMARY | 2025-03-07 09:33 | XMS_ITS | Encounter Summary ---
Author Organization [employer] Address [address] [place] [address] 7 [place] [address] Care Team Providers Care Cut Out Machine Operator Name Role Phone Gill Carl MD Primary Care Provide r Encounter Details Date Type Department Care Team ([facility] st Contact Info) Description 08/22/2022 Abstract [facility] MEDICINE [address] [place] [address] Jessica Kuhn, RN [address] [place] [address] Social History Tobacco Use Types Packs/Day Years [...] on filedocumented in this encounter Care Teams Cut Out Machine Operator Relationship Specialty Start Date End Date Gill Carl MD [address] [place] [address] PCP - General Family Medicine 02/10/18 documented as of this encounter
--- OUTSIDE RECORDS SUMMARY | 2025-03-07 09:33 | XMS_ITS | Encounter Summary ---
Author Organization [employer] Address [address] [place] [address] 7t [place] [address] Care Team Providers Care Station Examiner Name Role Phone Gill Carl MD Primary Care Provide r Encounter Details Date Type Department Care Team ([facility] st Contact Info) Description 12/09/2022 Orders Only [facility] CHC MED & PEDS [address] [place], [place] [phone] Mary Manning LPN Social History Tobacco Use [...] documented as of this encounter Care Teams Station Examiner Relationship Specialty Start Date End Date Gill Carl MD [address] [place] [phone] PCP - General Family Medicine 02/10/18 documented as of this encounter
--- OUTSIDE RECORDS SUMMARY | 2025-03-07 09:33 | XMS_ITS | Encounter Summary ---
Author Organization [employer] Address [address] [place] [address] 7t [place] [address] Care Team Providers Care Biomedical Repair Technician Name Role Phone Gill Carl MD Primary Care Provide r Encounter Details Date Type Department Care Team ([facility] st Contact Info) Description 07/28/2022 Orders Only [facility] CHC MED & PEDS [address] [place] [address] Mary Manning LPN Social History Tobacco Use [...] AM EDT Narrative 08/21/2022 9:10 AM EDT [facility] [address] [place] [address] Mammography Report Signed Patient: Lanny Hicks MR#: [id number] [birth year] : 1960 Acct:[id number] Age/Sex: 61 / F ADM Date: 08/19/22 Loc: HO.MAMMO Attending Dr: Gill Molina MD Ordering Physician: Gill Carl MD Results: 1Negative Date of Service: 08/19/22 Follow Up: 1 Year From Orig inal Mammogram Procedure(s): MM tomosynthesis screening BI Accession Number(s): [id number] cc: Gill Carl MD EXAMINATION: MM SCREENING [...] in OV> 08/21/22 0907 DD/ 1100 TD/TT: Family Services Coordinator: SAMPSON Procedure Note Donotuseinterpreter, Image - 08/21/2022 [facility] [address] [place], [place] [address] Mammography Report Signed Patient: Lanny HicksMR#: [id number] 89 : 1960Acct:[id number] Age/Sex: 61 / FADM Date: 08/19/22 Loc: HO.MAMMO Attending Dr: Gill Molina MD Ordering Physician: Gill Carl MDResults: 1Negative Date of Service: 08/19/22Follow Up: 1 Year From Orig inal Mammogram Procedure(s): MM tomosynthesis screening BI Accession Number(s): [id number] cc: Gill Carl MD EXAMINATION: MM SCREENING [...] in OV> 08/21/22 0907 DD/ 1100 TD/TT: Family Services Coordinator: SAMPSON [facility] External Provider IMG BI PROCEDURES Final Result documented in this encounter Visit Diagnoses Not on filedocumented in this encounter Care Teams Biomedical Repair Technician Relationship Specialty Start Date End Date Gill Carl MD [address] [place] [address] PCP - General Family Medicine 02/10/18 documented as of this encounter
--- OUTSIDE RECORDS SUMMARY | 2025-03-07 09:33 | XMS_ITS | Clinical Summary ---
Author Organization [employer] Address [address] [place] [address] [address] [place] [address] Care Team Providers Care Brewery Pumper Name Role Phone Gill Carl MD Primary Care Provide r Allergies No known active allergies Medications FreeStyle lancets INJECT 1 BY SUBCUTANEOUS ROUTE EVERY DAY 05/10/20 22 Active FreeStyle lancets INJECT 1 BY SUBCUTANEOUS ROUTE EVERY DAY 100 each 11 04/06/20 24 Active metFORMIN (Glucophage) 1000 MG tabletIndicatio ns:Type 2 diabetes mellitus with other specified complication, without long-term current use of insulin (HCC) TAKE 1 TABLET BY MOUTH TWICE A DAY WITH BREAKFAST AND DINNER 180 tablet 3 05/13/20 24 Active atorvastatin (Lipitor) 20 MG tablet TAKE 1 TABLET BY MOUTH EVERY DAY IN THE MORNING 90 tablet 3 05/13/20 24 Active FREESTYLE LITE test stripIndication s:Type 2 diabetes mellitus without complication, with long-term current use of insulin (HCC) CHECK BY FINGERSTICK ROUTE EVERY DAY 50 strip 5 05/26/20 24 Active lisinopril-hydr oCHLOROthiazide 20-12.5 MG tabletIndicatio ns:Primary hypertension TAKE 1 TABLET BY MOUTH EVERY DAY IN THE MORNING 90 tablet 02/17/20 25 Active levothyroxine (Synthroid, Levoxyl) 50 MCG tabletIndicatio ns:Hypothyroidi sm, unspecified type TAKE 1 TABLET BY MOUTH EVERY DAY 90 tablet 02/17/20 25 Active FREESTYLE LITE test stripIndication s:Type 2 diabetes mellitus without complication, without long-term current use of insulin (HCC) Use to test blood sugar 1 times daily 100 each 12 02/29/20 25 2025 Active Lancets miscIndications :Type 2 diabetes mellitus without complication, without long-term current use of insulin (HCC) Use to test blood sugar 1 times daily 100 each 02/29/20 Active Alcohol Swabs 70 % padsIndications :Type 2 diabetes mellitus without complication, without long-term current use of insulin (HCC) Use to test blood sugar 1 times daily 100 each 02/29/20 Active Blood Glucose Monitoring Suppl (FreeStyle [place] Lite) w/Device kitIndications: Type 2 diabetes mellitus without complication, without long-term current use of insulin (HCC) Use to test blood sugar 1 times daily 1 kit 02/29/20 Active lisinopril-hydr oCHLOROthiazide 20-12.5 MG tabletIndicatio ns:Primary hypertension TAKE 1 TABLET BY MOUTH EVERY DAY IN THE MORNING 90 tablet 11/22/19 25 2024 Discontinued levothyroxine (Synthroid, Levoxyl) 50 MCG tabletIndicatio ns:Hypothyroidi sm, unspecified type TAKE 1 TABLET BY MOUTH EVERY DAY 90 tablet 11/22/19 25 2024 Discontinued Active Problems Problem Noted Date Diagnosed Date Rotator cuff arthropathy of left shoulder 2024 Assessment & Plan (02/28/2025 12:15 PM EDT): She may take acetaminophen as needed Letter for work will be generated Encounter for preventive care 09/09/2023 Assessment & [...] 10/09/2017 Acquired hypothyroidism 11/02/2015 Assessment & Plan (02/28/2025 12:15 PM EDT): TSH will be checked with labs Assessment & Plan (09/05/2022 10:45 AM EDT): tsh will be check with labs Type 2 diabetes mellitus without complication Assessment & Plan (02/28/2025 12:15 PM EDT): Diabetes is: almost at goal - Lab Results Component Value Date HGBA1C 6.7 (A) 02/28/2025 HGBA1C 6.5 (A) 06/04/2023 HGBA1C 6.9 (A) 09/05/2022 - Lab Results Component Value Date MICROALBUR 0.9 10/15/2020 CREATININE 0.64 09/09/2023 -Changes: None - Diabetic eye exam: Up-to-date - Diabetic foot exam: Pending - Continue lifestyle modifications - Continue current medications - Follow up: 6 months Assessment & Plan (09/09/2023 10:50 AM EDT): [...] medications Benign hypertension 11/03/2001 Assessment & Plan (02/28/2025 12:15 PM EDT): I advised: - Aerobic exercise to reduce BP. Initial [...] consulting health care provider Assessment & Plan (09/09/2023 10:49 AM EDT): [...] Encounters Date Type Department Care Team Description 02/28/2025 10:00 AM EDT Office Visit [facility] [address] [place] [phone] Gill Carl MD Type 2 diabetes mellitus without complication, without long-term current use of insulin ([facility]) (Primary Dx); Benign hypertension; Acquired hypothyroidism; Rotator cuff arthropathy of left shoulder 02/28/2025 Travel 02/27/2025 Telephone [facility] [address] [place] [address] Gill Carl MD Chart Prep 02/21/2025 Travel 02/20/2025 Patient Outreach [facility] [address] [place], [place] [phone] Glil Carl MD Pre-visit Planning (SDOH screening negative and tobacco screening negative) 02/16/2025 Refill [facility] [address] [place] [address] Gill Carl MD Primary hypertension; Hypothyroidism, unspecified type from Last 3 Months Immunizations Immunization Administration Dates Next Due Hep A, Adult [...] Date Recorded Patient Health Questionnaire-9 Score 0 02/28/2025 Patient Health Questionnaire-9 Score 0 02/28/2025 Last PHQ-9: Questionnaire Data Not on file 0 02/28/2025 Housing Stability Answer Date Recorded What is your housing situation today? I have archana kelly 02/20/[address] you li ve. Do you have problems with any of the following? None of the above 02/20/2025 Food Insecurity Answer Date Recorded Within the past 12 months, y ou worried that your food would run out before you got money to buy more: Never True 02/20/2025 Within the past 12 months,th e food you bought just didn't last and you didn't have enough money to get more: Never True Transportation Answer Date Recorded In the past 12 months, has l ack of transportation kept you from medical appts, meetings, work or from getting things needed for daily living? No 02/20/2025 Utilities Answer Date Recorded In the past 12 months, has t he electric, gas, oil or water company threatened to shut off services in your home? No 02/20/2025 Depression Answer Date Recorded Patient Health Questionnaire-2 Score 0 02/28/2025 Internet Access Answer Date Recorded Internet Access Q1 Yes 02/20/2025 Internet Access Q2 Not on file 02/20/2025 Comments Unknown Sex and Gender Information Value Date Recorded Sex Assigned at Female 03/31/2022 10:15 AM EDT Legal Sex Female 10:15 AM EDT Gender Identity Female 03/31/2022 10:15 AM EDT Sexual Orientation Straight 03/31/2022 10 :15 AM EDT Last Filed Vital Signs Vital Sign Reading Time Taken Comments Blood Pressure 106/62 02/28/2025 10:02 AM EDT Pulse 79 02/28/2025 10:02 AM EDT Temperature 33.3 C (92 F) 02/28/2025 10:02 AM EDT Respiratory Rate 14 02/28/2025 10:02 AM EDT Oxygen Saturation 99% 02/28/2025 10:02 AM EDT Inhaled Oxygen Concentration - - Weight 53.6 kg (118 lb 3.2 oz) 02/28/2025 10:02 AM EDT Height 157.5 cm (5' 2 ) 02/28/2025 10:02 AM EDT Body Mass Index 21.62 02/28/2025 10:02 AM EDT Plan of Treatment Health Maintenance Due Date Last Done Comments CT Colonography 1960 Colonoscopy 1960 FIT 1960 Sigmoidoscopy 1960 Eye Exam 11/27/1969 Pneumococcal Vaccine: 50+ Years (2 of 2 - PCV) 12/25/2000 12/26/1999 Zoster Vaccines (1 of 2) 11/27/2009 DTaP/Tdap/Td Vaccines (2 - Td or Tdap) 12/31/2020 12/31/2010, 09/22/1997 Diabetes: Urine Protein Screening 09/06/2023 09/05/2022, 10/15/2020 FOBT 06/21/2024 06/21/2023 Diabetes: Foot Exam 09/08/2024 09/09/2023, 09/09/2023, 09/09/2023, Additional history exists Lipid Panel 09/08/2024 09/09/2023, 04/11/2022, 10/15/2020 COVID-19 Vaccine ( season) 2025 10/19/2020, 09/28/2020 Influenza Vaccine (#1) 2025 4, 02/28/2020, 02/19/2015, Additional history exists Diabetes: Hemoglobin A1C 08/28/2025 025, 06/04/2023, 09/05/2022, Additional history exists Mammogram 08/30/2025 08/30/2024, 07/31, 08/19/2022, Additional history exists SDOH Screening 02/20/2026 02/20/2025 Alcohol/Substance Use Screening 02/28/2026 02/28/2025 Depression Screening 02/28/2026 02/28/2025, 02/29/20 25 Tobacco Screening 02/28/2026 02/28/2025 Colorectal Cancer Screening 06/21/2026 FIT DNA/Cologuard 06/21/2026 06/21/2023 Cervical Cancer Screening 10/31/2027 HPV/Cotest 10/31/2027 10/30/2022, 06/0 06/2022, 08/17/2017 Pap Smear 10/31/2027 10/30/2022, 06/0 06/2022, 10/30/2022 RSV Patients and Patients Aged 60 years or older (1 - 1-dose 75+ series) 11/27/2034 Hepatitis A Vaccines Aged Out 05/23/2009, 05/22/20 09 No longer eligible based on patient's age to complete this topic Hepatitis B Vaccines Completed 10/05/2012, 04/05/2012, 11/27/2011 Hepatitis C Screening Completed 09/09/2023 HIB Vaccines Aged Out No longer eligi ble based on patient's age to complete this topic HPV Vaccines Aged Out No longer eligi ble based on patient's age to complete this topic IPV Vaccines Aged Out No longer eligi ble based on patient's age to complete this topic Meningococcal B Vaccine Aged Out No l onger eligible based on patient's age to complete [...] Procedure Name Priority Date/Time Associated Diagnosis Comments POCT GLYCATED HEMOGLOBIN, TOTAL Routine 02/28/2025 10:31 AM EDT Type 2 diabetes mellitus without complication, without long-term current use of insulin (CMS/HCC) POCT GLUCOSE Routine 02/28/2025 10:31 AM EDT Type 2 diabetes mellitus without complication, without long-term current use of insulin (CMS/HCC) BI MAMMOGRAM SCREENING TOMOSYNTHESIS BILATERAL Routine 08/30/2024 11:00 AM EDT HEPATITIS C AB W/REFL TO HCV RNA, QN, PCR Routine 09/09/2023 11:32 AM EDT Encounter for preventive care LIPID PANEL, STANDARD Routine 09/09/2023 11:32 AM EDT Encounter for preventive care LAB COLOGUARD COLON CANCER SCREEN Routine 06/21/2023 11:40 AM EST Colon cancer screening IMAGE-GUIDED PAP W/AGE BASED SCR,W/CT/NG/TRICH Routine 10/30/2022 10:47 AM EDT Cervical cancer screening ALBUMIN, RANDOM URINE W/O CREATININE Routine 09/05/2022 10:32 AM EDT Type 2 diabetes mellitus without complication, with long-term current use of insulin (CMS/HCC) from Last 3 Months or Most Recently Relevant to Health Maintenance Results * (ABNORMAL) POCT Hgb A1c (02/28/2025 10:31 AM EDT) Hemoglobin A1C 6.7(A) 4.0 - 5.7 % QC Media Lot # [id number] Lot# Expiration Date [id number] Blood 02/28/2025 10:3 1 AM EDT Gill Molina MD POINT OF CARE TEST EN TER/EDIT ORDERABLES Final Result * POCT Glucose (02/28/2025 10:31 AM EDT) Glucose Blood, POC 102 60 - 200 mg/dL QC Media Lot # [id number] Lot# Expiration Date Blood Capillary blood specimen / Unknown 02/28/2025 10:31 AM EDT Gill Molina MD POINT OF CARE TEST EN TER/EDIT ORDERABLES Final Result * BI Mammogram Screening Tomosynthesis Bilateral (08/30/2024 11:00 AM EDT) Anatomical Region Laterality Modality Breast Bilateral Mammography 08/30/2024 11:0 0 AM EDT Narrative 09/04/2024 6:46 PM EDT [facility] [address] [place] [address] Mammography Report Signed Patient: Lanny Hicks MR#: [id number] 89 : 1960 Acct:[id number] Age/Sex: 63 / F ADM Date: 08/30/24 Loc: HO.MAMMO Attending Dr: Gill Molina MD Ordering Physician: Gill Carl MD Results: 1Negative Date of Service: 08/30/24 Follow Up: 1 Year From [facility] Mammogram Procedure(s): MM tomosynthesis screening BI Accession Number(s): [id number] cc: Gill Carl MD EXAMINATION: MM SCREENING DIGITAL BREAST TOMOSYNTHESIS, BILATERAL CLINICAL INFORMATION: Screening. Asymptomatic. COMPARISON: Mammography: Comparison is made with available priors TECHNIQUE: Digital breast mammography with tomosynthesis is performed in both the craniocaudal and mediolateral oblique views along with computer-aided detection (CAD). FINDINGS: There are scattered areas of fibroglandular [...] target due date for their next mammogram. Electronically signed by: Maria Ines Renteria DO 09/04/2024 06:44 PM EDT Dictated By: Maria Ines Renteria DO Signed By: <Electronically signed by Maria Ines Renteria DO in OV> 09/04/24 1844 DD/ 1100 TD/TT: 08/30/24 1120 Cornice Maker: Procedure Note Donotuseinterpreter, Image - 09/04/2024 [facility] [address] [place] [address] Mammography Report Signed Patient: Lanny HicksMR#: [id number] 89 : 1960Acct:[id number] Age/Sex: 63 / FADM Date: 08/30/24 Loc: HO.MAMMO Attending Dr: Gill Molina MD Ordering Physician: Gill Carl MDResults: 1Negative Date of Service: 08/30/24Follow Up: 1 Year From Orig inal Mammogram Procedure(s): MM tomosynthesis screening BI Accession Number(s): [id number] cc: Gill Carl MD EXAMINATION: MM SCREENING DIGITAL BREAST TOMOSYNTHESIS, BILATERAL CLINICAL INFORMATION: Screening. Asymptomatic. COMPARISON: Mammography: Comparison is made with available priors TECHNIQUE: Digital breast mammography with tomosynthesis is performed in both the craniocaudal and mediolateral oblique views along with computer-aided detection (CAD). FINDINGS: There are scattered areas of fibroglandular [...] target due date for their next mammogram. Electronically signed by: Maria Ines Renteria DO 09/04/2024 06:44 PM EDT RP Dictated By: Maria Ines Renteria DO Signed By: <Electronically signed by Maria Ines Renteria DO in OV> 09/04/24 1844 DD/ 1100 TD/TT: 08/30/24 1120 Cornice Maker: Gill Molina MD IMG BI PROCEDURES Nahum guillermo Result - Final * Hepatitis C Antibody with Reflex to HCV, RNA, Quantitative, Real-Time PCR (09/09/2023 11:32 AM EDT) Hepatitis C Antibody Nonreactive Nonreactive [facility] Comment:Antibodies to HCV no t detected; does not exclude early acuteHCV infection. Blood Venous blood specimen / Unknown 09/09/2023 11:32 AM EDT 09/09/2023 1:38 PM EDT us Gill Molina MD LAB BLOOD ORDERABLES Final Result [facility] [address] [place] [phone] * Lipid Panel, Standard (09/09/2023 11:32 AM EDT) Triglycerides 62 <150 mg/dL [facility] Comment:Desirable Triglyceri de: less than 150 mg/dLBorderline High Triglyceride 150-199 mg/dLHigh Triglyceride: 200-499 mg/dLVery High Triglyceride: greater than or equal to 5OO mg/dL Cholesterol 125 <200 mg/dL [facility] Comment:Desirable Cholestero l: less than 200 mg/dLBorderline High Cholesterol: 200-239 mg/dLHigh Cholesterol: greater than 239 mg/dL LDL Cholesterol Calculated 69 <100 mg/dL [facility] Comment:Desirable LDL: less than 100 mg/dLNear Optimal/Above Optimal LDL: 110- 129 mg/dLBorderline High LDL: 130-159 mg/dLHigh LDL: 160-189 mg/dLVery High LDL: greater than or equal to 190 mg/dL HDL Cholesterol 44 >40 mg/dL [facility] Comment:Desirable HDL: great er than 40 mg/dL Note: This HDL assay may give artificially low results in patients with liver disease. Blood Venous blood specimen / Unknown 09/09/2023 11:32 AM EDT 09/09/2023 1:38 PM EDT Gill Molina MD LAB BLOOD ORDERABLES Final Result [facility] [address] [place] [address] [phone] * Cologuard?? colon cancer screening (06/21/2023 11:40 AM EST) Cologuard Result Negative Negative 06/30/19 12:20 AM EST [facility] (CLIA #:[id number]) Comment: NEGATIVE TEST RESULT. A negative Cologuard result indicates a low likelihood that a colorectal cancer (CRC) or advanced adenoma (adenomatous polyps with more advanced pre-malignant features) is present. The chance that a person with a negative Cologuard test has a colorectal cancer is less than 1 in 1500 (negative predictive value >99.9%) or has an advanced adenoma is less than 5.3% (negative predictive value 94.7%). These data are based on a prospective cross-sectional study of 10,000 individuals at average risk for colorectal cancer who were screened with both Cologuard and colonoscopy. (Geoffrey Eldridge al, N Engl J Med 2014;370(14):2547-1932) The normal value (reference range) for this assay is negative. COLOGUARD RE-SCREENING RECOMMENDATION: Periodic colorectal cancer screening is an important part of preventive healthcare for asymptomatic individuals at average risk for colorectal cancer. Following a negative Cologuard result, the [place] [employer] Society and U.S. Multi-Society Task Force screening guidelines recommend a Cologuard re-screening interval of 3 years. References: [place] [employer] Guideline for Colorectal Cancer Screening: https://www.cancer.org/cancer/nabiw-lndbpn-uceaep/lrxivfnqv-keoozztmh-lcgrjet/ac s-rec ommendations.html.; Tacos DK, Kye CR, Maritza WatersK, Colorectal Cancer Screening: Recommendations for Physicians and Patients from the U.S. Multi-Society Task Force on Colorectal Cancer Screening , Am J Gastroenterology 2017; 112:9191-8724. TEST DESCRIPTION: Composite algorithmic analysis of stool DNA-biomarkers with hemoglobin immunoassay. Quantitative values of individual biomarkers are not [...] (Geoffrey Eldridge al, N Engl J Med 2014;370(14):2389-6522.) Cologuard may produce a false negative or false positive result (no colorectal cancer or precancerous polyp present at colonoscopy follow up). A negative Cologuard test result does not guarantee the absence of CRC or advanced adenoma (pre-cancer). The current Cologuard screening interval is every 3 years. ([place] Cancer Society and U.S. Multi-Society Task Force). Cologuard performance data in a 10,000 patient pivotal study using colonoscopy as the reference method can be accessed at the following location: www.Phone.com.Ziptr/results. Additional description of the Cologuard test process, warnings and precautions can be found at www.[email or web address] Pay[employer] [email or web address]. Stool specimen (specimen) 06/21/2023 11:40 AM EST 06/23/2023 11:34 AM EST Gill Molina MD LAB MOLECULAR DIAGNOS TICS ORDERABLES Final Result [facility] (CLIA #:[id number]) [address] [place] [address], * Image-Guided Pap with Age-Based Screening??with CT/NG,??Trichomonas (10/30/2022 10:47 AM EDT) Comment OPPRTUNITY Comment: This order for age-based cervical cancer and STI screening follows ACOG guidelines(PB 168, 140, BFO893). See individual assays for performing site location. Clinical Information: 61 YR/F [employer] [facility] LMP: NONE GIVEN [employer] It's what's in storet Prev. PAP: NONE GIVEN [employer] - It's what's in storet Prev. BX: NONE GIVEN [employer] SOURCE: None given [employer] - It's what's in storet Statement Of Adequacy: [employer] [facility] It's what's in storet Comment: Satisfactory for evaluation. Endocervical/transformation zone component present. Interpretation/Re sult: Negative for intraepithelial lesion or malignancy. [employer] - It's what's in storet COMMENT: This Pap test has been evaluated with computer assisted technology. [facility] [place] [employer] Engineer: [employer] Comment: ALYCE, CT(ASCP) CT screening location: [address] [address] (Always Message) [facility] [employer] Comment: EXPLANATORY NOTE: The Pap is a [...] HPV nRNA E6/E7 Not Detected Not Detected [employer] - It's what's in storet Comment: Methodology: Media Relations Manager-Mediated Amplification This assay detects E6/E7 viral messenger RNA (mRNA) from 14 high-risk HPV types (16,18,31,33,35,39,45,51,52,56,58,59,66,68). Cervical sources are required for HPV testing. If a vaginal source from a patient who has had a total hysterectomy with removal of cervix was submitted, please contact the testing laboratory for alternative testing options. For additional information, please refer to http://[employer]ity/faq/REO785n1 (This link if provided for information/ educational purposes only.) Chlamydia trachomatis RNA, TMA, Urogenital NOT DETECTED NOT DETECTED OPPRTUNITY Neisseria gonorrhoeae RNA, TMA, Urogenital NOT DETECTED NOT DETECTED OPPRTUNITY (Always Message) [facility] Comment: The analytical performance characteristics of this assay, when used to test SurePath(TM) specimens have been determined by [facility]. The modifications have not been cleared or approved by the FDA. This assay has been validated pursuant to the CLIA regulations and is used for clinical purposes. For additional information, please refer to https://[employer]/faq/SXO682 (This link is being provided for information/ educational purposes only.) Trichomonas vaginalis, QL, TMA, PAP Vial NOT DETECTED NOT DETECTED OPPRTUNITY Comment: The analytical performance characteristics of this assay have been determined by [facility]. The modifications have not been cleared or approved by the FDA. This assay has been validated pursuant to the CLIA regulations and is used for clinical purposes. For additional information, please refer to http://[employer]/ faq/Trichomonastma (This link is being provided for information/ educational purposes only.) Cervix 10/30/2022 10:4 7 AM EDT 10/31/2022 2:52 AM EDT Gill Molina MD LAB CYTOLOGY ORDERABL ES Final Result [facility] [address], [place] [address] [facility] [place] [facility] [address] [place] [address] * Albumin, Random Urine W/O Creatinine (09/05/2022 10:32 AM EDT) Albumin, Urine 0.6 See Note: mg/dL [facility] [place] [employer] Comment: Reference Range: Reference Range Not established ALYCE [facility] [place] [facility] Comment: The ADA defines abnormalities in albumin excretion as follows: Albuminuria Category Result (mcg/mg creatinine) Normal to Mildly increased <30 Moderately increased 30-299 Severely increased > OR = 300 The ADA recommends that at least two of three specimens collected within a 3-6 month period be abnormal before considering a patient to be within a diagnostic category. Urine Urine specimen obtained by clean catch procedure / Unknown 09/05/2022 10:32 AM EDT 09/05/2022 10:32 AM EDT Narrative [facility] - 09/06/2022 12:24 AM EDT FASTING:YES FASTING: YES Gill Molina MD LAB URINE ORDERABLES Final Result [facility] [address], [place] [address] [facility] [place] [facility] [address] [place] [address] from Last 3 Months or Most Recently Relevant to Health Maintenance [place] [address] [place] [address] [employer] PLAN Care Teams Brewery Pumper Relationship Specialty Start Date End Date Gill Carl MD [address] [place] [phone] PCP - General Family Medicine 02/10/18
--- OUTSIDE RECORDS SUMMARY | 2025-03-07 09:33 | XMS_ITS | Encounter Summary ---
Author Organization [employer] Address [address] [facility] [address] [place] [address] Care Team Providers Care Roll Tester Name Role Phone Gill Carl MD Primary Care Provide r Reason for Visit * Reason Comments Med Refill Encounter Details Date Type Department Care Team ([facility] st Contact Info) Description 11/20/2023 Refill [facility] [address] [place], [place] [phone] Gill Carl MD [address] [place] [address] Hypothyroidism, unspecified type Social History Tobacco Use [...] is your housing situation today? I have archanayoung kelly 03/30/[address] you [...] documented as of this encounter Care Teams Roll Tester Relationship Specialty Start Date End Date Gill Carl MD [address] [place] [phone] PCP - General Family Medicine 02/10/18 documented as of this encounter
[2025-03-07 12:06] LABS: Alanine Aminotransferase 28 U/L (0-31); Albumin Level 4.4 g/dL (3.5-5.0); Alkaline Phosphatase 56 U/L (39-117); Anion Gap 12 (12-20); Aspartate Amino Transferase 31 U/L (5-31); Blood Urea Nitrogen 18 mg/dL (9-16); Calcium 9.3 mg/dL (8.4-10.2); Carbon Dioxide 29 mmol/L (22-29); Chloride 103 mmol/L (96-108); Cholesterol 119 mg/dL (<200); Estimated Glomerular Filt Rate > 60; HDL Cholesterol 38 mg/dL (>40); Potassium 4.1 mmol/L (3.3-5.1); Sodium 140 mmol/L (135-145); Total Protein 7.0 g/dL (6.5-8.0); Triglycerides 86 mg/dL (<150)
[2025-03-07 13:07] LABS: Free T4 (Free Thyroxine) 1.02 ng/dL (0.71-1.85)
== END 2025-03-07 08:49 | disposition home or self-care (01) ==
LOC: HO.HHCL 08:48
PROVIDERS: PCP Internal Medicine; Visit Provider Internal Medicine
DX: E11.9 Type 2 diabetes mellitus without complications (principal); E03.9 Hypothyroidism, unspecified
CPT/HCPCS: 36415; 80053; 80061; 84439; 84443